=== PATIENT | male | born 1970 | race Caucasian/White ===

== ENCOUNTER 2017-07-19 09:15 | Emergency (ER) | payer BC ==
[2017-07-19] MEDS ORDERED: Morphine 10 MG/ML VIAL ONE (09:57)
[2017-07-19] MEDS ORDERED: Diazepam 5 MG TAB ONE (10:33)
== END 2017-07-19 10:55 | disposition home or self-care (01) ==
LOC: ERS 09:15
DX: M62.830 Muscle spasm of back (principal); I10 Essential (primary) hypertension; Z79.899 Other long term (current) drug therapy
CPT/HCPCS: 96372; J2270

== ENCOUNTER 2017-10-12 12:05 | Emergency (ER) | payer BC, OTHER ==
[2017-10-12] MEDS ORDERED: Ketorolac Tromethamine 30 MG/ML VIAL ONE (13:37)
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
== END 2017-10-12 14:42 | disposition home or self-care (01) ==
LOC: ERS 12:05
DX: S43.401A Unspecified sprain of right shoulder joint, initial encounter (principal); I10 Essential (primary) hypertension; Z79.899 Other long term (current) drug therapy; V43.52XA Car driver injured in collision with other type car in traffic accident, initial encounter
CPT/HCPCS: 96372; J1885

== ENCOUNTER 2017-11-06 08:40 | Outpatient (CLI) | payer BC, OTHER ==
[2017-11-06] MEDS ORDERED: EPINEPHrine 1 MG/ML AMP ONE (09:00)
[2017-11-06] MEDS ORDERED: Gadobenate Dimeglumine 529 MG/1 ML (20ML VIAL) ONE (09:00)
[2017-11-06] MEDS ORDERED: Lidocaine 1% PF 10 ML AMP ONE (09:00)
[2017-11-06] MEDS ORDERED: Iopamidol 300 61% 50 ML VIAL FS ONE (09:00)
--- NOTE | 2017-11-06 11:09 | RAD ---
RIGHT SHOULDER ARTHROGRAM: 11/06/2017 PROVIDED CLINICAL HISTORY: Right shoulder pain. FINDINGS: Informed consent was obtained from the patient. The patient was placed on the fluoroscopy table in t he supine position, and the area overlying the right glenohumeral joint was localized fluoroscopicall y and prepped and draped in the usual sterile manner. The soft tissues were infiltrated with 1% Lido mendel. Under intermittent fluoroscopy guidance, a 22 gauge spinal needle was advanced into the right glenohumeral joint, with administration of 17 mL of iodinated and Gadolinium based contrast solution , initially containing 0.1 mL of MultiHance. The needle was withdrawn and hemostasis achieved. No i mmediate complications. Post arthrographic images demonstrate no evidence for a full-thickness rotator cuff tear. IMPRESSION: Technically successful right shoulder arthrogram, for MRI to follow. Please see that report. POS: [facility]
--- NOTE | 2017-11-06 11:52 | MRI ---
MRI RIGHT SHOULDER WITH INTRAARTICULAR CONTRAST: 11/06/2017 PROVIDED CLINICAL HISTORY: Right shoulder pain. FINDINGS: The components of the rotator cuff appear intact. The longhead biceps tendon appears intact and norm ally located. There is a somewhat attenuated and irregular appearance to the middle glenohumeral ligaments. There is a partial-thickness, nondisplaced, chondrolabral separation type tear involving the posterior alvaro oid labrum, near the equator. There is prominent subjacent, subcortical, cyst-like change within the posterior glenoid. There is overlying articulate cartilage deficiency. The glenoid labrum and lee cular cartilage appear otherwise normal. There is a 9 mm oval focus of altered signal intensity present within the superior subscapularis rece ss, compatible with an intraarticular body. Acromioclavicular joint osteoarthrosis is mild, with mild mass effect upon the subjacent supraspinatu s. No focal concerning regional marrow or muscular signal abnormality is evident. IMPRESSION: 1. Nondisplaced, partial-thickness chondrolabral separate-type tear involving the posterior glenoid labrum. 2. Posterior glenoid articular chondrosis, with prominent subcortical cyst formation. 3. 9 mm intraarticular body within the superior subscapularis recess. 4. Acromioclavicular joint osteoarthrosis. POS: [facility]
== END 2017-11-06 08:41 | disposition home or self-care (01) ==
LOC: RAD 08:40
PROVIDERS: ATTEND Orthopaedic Surgery
DX: S43.401A Unspecified sprain of right shoulder joint, initial encounter (principal); M19.011 Primary osteoarthritis, right shoulder
CPT/HCPCS: 23350; A9579; J0171; J7050

== ENCOUNTER 2018-01-14 07:03 | Day surgery (SDC) | payer BC, OTHER ==
[2018-01-12 16:32] VITALS: BMI 26.2
[2018-01-14] MEDS ORDERED: Midazolam HCl 2 mg/2 ml Vial ONE ×3 (07:52→08:46)
[2018-01-14] MEDS ORDERED: Fentanyl 100 MCG/2 ML VIAL ONE (07:53)
[2018-01-14] MEDS ORDERED: Famotidine/PF 20 mg/2ml Vial ONE (08:46)
[2018-01-14] MEDS ORDERED: Scopolamine 1.5 mg/72 hour Patch ONE (08:46)
[2018-01-14] MEDS ORDERED: Fentanyl 250 MCG/5 ML VIAL ONE (08:47)
[2018-01-14] MEDS ORDERED: Bupivacaine/Epinephrine 0.25% 30 ML VIAL ONE (08:48)
[2018-01-14] MEDS ORDERED: CEFAZOLIN 2 GM/50 ML BAG ONE (08:53)
[2018-01-14] MEDS ORDERED: traMADol HCl 50 MG TAB PO PRN ×2 (08:59)
[2018-01-14] MEDS ORDERED: Ropivacaine 0.2% 550 ML 550 ML NERVE BLCK SCH (08:59)
[2018-01-14] MEDS ORDERED: HYDROcodone/Acetaminophen 5/325 mg Tablet PO PRN ×2 (08:59)
[2018-01-14] MEDS ORDERED: Zolpidem Tartrate 5 MG TAB PO PRN (08:59)
[2018-01-14] MEDS ORDERED: Ondansetron PF 4 MG/2 ML Vial IVP PRN (08:59)
[2018-01-14] MEDS ORDERED: Promethazine HCl 25 MG/ML VIAL IM PRN (08:59)
[2018-01-14] MEDS ORDERED: Fentanyl 100 MCG/2 ML VIAL SLOW IVP PRN (09:00)
[2018-01-14] MEDS ORDERED: Morphine 2 MG/ML SYRINGE ONE (13:51)
[2018-01-14] MEDS ORDERED: HYDROcodone/Acetaminophen 5/325 mg Tablet ONE (13:51)
--- NOTE | 2018-01-14 16:10 | OP ---
DATE OF PROCEDURE: 01/14/2018 PREOPERATIVE DIAGNOSES: Right shoulder degenerative labral tear, biceps instability. POSTOPERATIVE DIAGNOSES: Circumferential degenerative labral tear to include biceps attachment and destabilization of the biceps tendon itself. The patient also has some chondral damage on the leading edge of the articular surface of the glenoid as well as at 6 o'clock. The patient had some significant synovitis in the glenohumeral joint. The patient had a partial undersurface rotator cuff tear of the supraspinatus which was approximating 15% of the tendon and impingement. PROCEDURES PERFORMED: 1. Right shoulder arthroscopy with subacromial decompression. 2. Debridement and shaving of degenerative labral tear, partial cuff tear, and unstable chondral flaps of the glenoid. 3. Open biceps tenodesis. IMPLANTS: 7 x 23 [employer]posite Bio-Tenodesis screw from [employer]. ANESTHESIA: He did have general anesthetic as well as a block. DISPOSITION: He went to recovery room in stable condition. INDICATIONS FOR PROCEDURE: This is a 47-year-old active male, who comes in complaining of long-term pain in the shoulder. We tried to get him better with non-operative treatment to include injections and this was failed to relieve his symptoms. At this time, he is presenting for surgery. DESCRIPTION OF PROCEDURE: After all appropriate consent forms were explained and signed, he was taken back to the operating room, and at this time, he was given an anesthetic. Once the level of anesthesia was appropriate, he was rolled onto the left lateral decubitus position with all bony prominences were well padded. A arreguin bag was inflated to hold him in this position. The axillary roll was placed underneath the left axilla. The arm was then taken through full range of motion and then suspended 15 pounds in standard arthroscopic fashion. The right shoulder and upper extremity were then prepped and draped in standard surgical fashion. Bony anatomical landmarks were drawn out and the subacromial space was infiltrated with Marcaine with epinephrine. Posterior portal was established. Scope was placed into the shoulder joint. Anterior working portal was then made using a needle localization technique. Diagnostic arthroscopy commenced. Articular surfaces of the humeral head overall was in good condition. The glenoid overall was in good condition, however, in the front portion of the glenoid just behind the anterior labrum, there was some significant chondral damage. There was significant circumferential degenerative labral tearing to include the biceps tendon insertion and leading to biceps instability. There was significant amount of synovitis around the biceps and around the superior labrum. There were no loose bodies in the axillary pouch. Subscapularis was found to be intact. At this time, a shaver was introduced and all aforementioned tissues were debrided. The cuff was found to have just 15% maximum portion tear, otherwise it was in excellent condition once this small amount was debrided. The labrum had a degeneration debrided and then the SERFAS energy was brought in to coagulate any brisk venous bleeding. Once this was done, a needle was used to place the suture through the biceps tendon. The biceps was cut with the scissors and at this time, the superior edge was debrided with the shaver. We then removed the scope and replaced in the subacromial space. Lateral working portal was made and copious amount of bursa was removed off the underlying cuff. Small bony decompression was performed using the SERFAS energy and the shaver. Remaining cuff was examined and found to be intact. There was a scuffed area on the bursal surface posteriorly. At this time, scope was removed. Shoulder was drained. A 15 blade was used to make a longitudinal incision, where the previous 18 gauge needle had been placed. We placed a suture through our biceps. This was taken down through the skin. Bovie was used to coagulate any brisk venous bleeding. Deltoid fascia was opened sharply and finger dissection was used to dissect in line with the deltoid to get down to the underlying transverse humeral ligament. This was opened up and the biceps tendon was pulled out. There was significant and multiple rice bodies located in the bicipital groove. These were all removed. There was a significant amount of synovitis which was also removed and the brisk venous bleeding was coagulated. Once this was all cleaned out, we sutured our tendon, we cut off our intraarticular portion, we placed our pin. We reamed with a 7.5 mm reamer down to the depth of 25. A 7 x 23 [employer] Bio-Tenodesis screw was then used to fixate our biceps tendon in the groove. Sutures were tied over top, so the screw could not back out. At this time, we thoroughly irrigated and dried. We allowed our deltoid interval to close upon itself. We used a running Vicryl to close our deltoid fascia, 2-0 Vicryl and nylon sutures to close this incision as well as our portals. At this time, a bulky sterile dressing was applied. The patient was awakened and he was taken to recovery room in stable condition. All counts were correct at the end of case and he did receive preoperative IV antibiotics. Job ID: [id number]
[2018-01-14] MEDS ORDERED: Ropivacaine 0.5% HCl/PF (150 MG/30 ML VIAL) ONE (16:20)
[2018-01-14] MEDS ORDERED: Ropivacaine 0.2% HCl/PF (40 MG/20 ML VIAL) ONE (16:20)
[2018-01-14] MEDS ORDERED: Esmolol 100 MG/10 ML VIAL ONE (16:29)
[2018-01-14] MEDS ORDERED: Glycopyrrolate 0.2 MG/ML 5 ML SYRINGE ONE (16:29)
[2018-01-14] MEDS ORDERED: Succinylcholine Chloride 20 MG/ML 10 ml SYRINGE FS ONE (16:29)
[2018-01-14] MEDS ORDERED: PROPOFOL 200 MG/20 ML VIAL ONE (16:29)
[2018-01-14] MEDS ORDERED: Dexamethasone 20 MG/5 ML VIAL ONE (16:29)
[2018-01-14] MEDS ORDERED: ePHEDrine/0.9% NaCl/PF SYRINGE 50 mg/10 ml ONE (16:29)
[2018-01-14] MEDS ORDERED: PHENYLEPHRINE-NS 100 MCG/ML 10 ML SYRINGE ONE (16:29)
[2018-01-14] MEDS ORDERED: Lidocaine 1% PF 5 ML VIAL ONE (16:29)
[2018-01-14] MEDS ORDERED: Ondansetron PF 4 MG/2 ML Vial ONE (16:29)
== END 2018-01-14 14:39 | disposition home or self-care (01) ==
LOC: SDC 07:03
PROVIDERS: ATTEND Orthopaedic Surgery
PROC: 0LS10ZZ Reposition Right Shoulder Tendon, Open Approach (ICD-10-PCS; principal; 2018-01-14)
PROC: 0RBJ4ZZ Excision of Right Shoulder Joint, Percutaneous Endoscopic Approach (ICD-10-PCS; principal; 2018-01-14)
DX: S43.431A Superior glenoid labrum lesion of right shoulder, initial encounter (principal); M25.811 Other specified joint disorders, right shoulder; M65.811 Other synovitis and tenosynovitis, right shoulder; M75.111 Incomplete rotator cuff tear or rupture of right shoulder, not specified as traumatic; Z79.899 Other long term (current) drug therapy
CPT/HCPCS: A4306; C1713; J1100; J2001; J2250; J2270; J2405; J2704; J2795; J3010; J3490; S0028